=== PATIENT | male | born 1975 | race Caucasian/White ===

== ENCOUNTER 2017-08-13 04:54 | Emergency (ER) | payer SELFPAY ==
[2017-08-13 05:11] VITALS: BP 123/79; PULSE 75; TEMP 98.2; BMI 25.1
--- NOTE | 2017-08-13 05:14 | PDOC ---
History of Present Illness - General Stated Complaint: ear infection Time Seen by Provider: 08/13/17 04:59 History Source: Patient Exam Limitations: No Limitations - History of Present Illness Initial Comments: 08/13/17 05:12 42-year-old male without significant past medical history who presents emergency department tonight bilateral earaches which she describes as a pressure feeling. Patient also reports having sore throat, dry productive cough , and rhinorrhea for 3 days. Patient was seen at an urgent care center and prescribed Naprosyn and azithromycin. Patient has been taking medications for 1 day has not seen an improvement in symptoms. Denies fevers, chills, chest pain, shortness of breath, nausea, vomiting, abdominal pain. Past History - Past Medical History Allergies/Adverse Reactions: Allergies Allergy/AdvReac Type Severity Reaction Status Date / Time No Known Allergies Allergy Verified 08/13/17 05:11 Review of Systems - Review of Systems Able to Perform ROS?: Yes Is the patient limited Surinamese proficient: No Constitutional: No: Symptoms Reported HEENTM: Yes: See HPI Respiratory: Yes: See HPI Cardiac (ROS): No: Symptoms Reported ABD/GI: No: Symptoms Reported : No: Symptoms Reported Musculoskeletal: No: Symptoms Reported Integumentary: No: Symptoms Reported Neurological: No: Symptoms reported Endocrine: No: Symptoms Reported *Physical Exam - Physical Exam General Appearance: Yes: Appropriately Dressed. No: Apparent Distress HEENT: positive: Pharyngeal Erythema, Tonsillar Erythema, Nasal Congestion, Rhinorrhea, Other (bilateral retractions of the TM's). negative: Muffled/ Hoarse voice, Tonsillar Exudate, Sinus Tenderness Neck: positive: Trachea midline, Supple Respiratory/Chest: positive: Lungs Clear, Normal Breath Sounds. negative: Respiratory Distress, Accessory Muscle Use Cardiovascular: positive: Regular Rhythm, Regular Rate. negative: Murmur Gastrointestinal/Abdominal: positive: Normal Bowel Sounds, Soft. negative: Tender Musculoskeletal: positive: Normal Inspection. negative: CVA Tenderness Extremity: positive: Normal Inspection Integumentary: positive: Normal Color, Dry, Warm Neurologic: positive: Alert, Normal Response Medical Decision Making - Medical Decision Making 08/13/17 05:15 A/P: 42-year-old male without medical history with 3 days of upper respiratory symptoms TMs with retractions noted bilaterally Pharyngeal and tonsillar erythema is present. No exudates are present Uvula midline Cobblestoning noted to the posterior oropharynx Lungs clear to auscultation bilaterally Symptoms are consistent with upper respiratory infection. Patient is already being treated with azithromycin and Naprosyn. Patient was instructed to add decongestants to his previously prescribed regimen. We'll discharge the patient home. Patient verbalizes understanding of discharge instructions. *DC/Admit/Observation/Transfer Diagnosis at time of Disposition: Upper respiratory infection Qualifiers: URI type: unspecified URI Qualified Code(s): J06.9 - Acute upper respiratory infection, unspecified - Discharge Dispostion Disposition: HOME Condition at time of disposition: Stable Decision to Admit order: No - Referrals - Patient Instructions Additional Instructions: Rest, drink lots of fluids: Teas, water, soups Saltwater gargles. Consider humidifier in room at night Steamy showers/seem to face break up mucus Avoid contact with allergens, exposure to pollens, close windows on a windy day Lots of handwashing and good hygiene Continue ateg-hha-xvoyraa medications for symptomatic relief- may use allergic eyedrops for itching Continue antihistamines daily until pollen season is over; Zyrtec, Claritin, Siobhan during the daytime and Benadryl at nighttime as will make sleepy Tylenol or naproxen for fever and pain continue taking previously prescribed medications Followup with private physician in one to 2 days as needed Consider following up with an children's counselor/professional nursing assistant for skin testing and possible allergy shots Return to emergency department for worsened symptoms, fevers, dehydration - Post Discharge Activity
== END 2017-08-13 05:12 | disposition home or self-care (01) ==
LOC: JER 04:54
DX: J06.9 Acute upper respiratory infection, unspecified (principal)
CPT/HCPCS: 99281-25

== ENCOUNTER 2019-01-14 18:54 | Emergency (ER) | payer SELFPAY ==
[2019-01-14 19:10] VITALS: BP 136/86; PULSE 68; TEMP 98.3; BMI 27.2
[2019-01-14] MEDS ORDERED: KETOROLAC TROMETHAMINE 60 MG/2 ML VIAL IM ONE (20:20)
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
[2019-01-14] MEDS ORDERED: KETOROLAC TROMETHAMINE 60 MG/2 ML VIAL ONE (20:26)
== END 2019-01-14 20:35 | disposition home or self-care (01) ==
LOC: JERFT 18:54
PROC: 3E0233Z Introduction of Anti-inflammatory into Muscle, Percutaneous Approach (ICD-10-PCS; principal; 2019-01-14)
DX: S39.012A Strain of muscle, fascia and tendon of lower back, initial encounter (principal); S16.1XXA Strain of muscle, fascia and tendon at neck level, initial encounter; V89.2XXA Person injured in unspecified motor-vehicle accident, traffic, initial encounter; Y92.488 Other paved roadways as the place of occurrence of the external cause; Y93.89 Activity, other specified; Y99.8 Other external cause status; E11.9 Type 2 diabetes mellitus without complications; E78.00 Pure hypercholesterolemia, unspecified
CPT/HCPCS: 99282-25

== ENCOUNTER 2020-12-24 21:19 | Emergency (ER) | payer OTHER ==
[2020-12-24 21:58] VITALS: BP 153/80; PULSE 64; TEMP 98; BMI 25.4
[2020-12-24] MEDS ORDERED: MAG HYDROX/AL HYDROX/SIMETH 30 ML UNIT-DOSE CUP PO ONE (22:34)
[2020-12-24] MEDS ORDERED: FAMOTIDINE 20 MG/50 ML IVPB 20 MG/50 ML MG IVPB ONE ×2 (22:34→23:00)
[2020-12-24] MEDS ORDERED: SODIUM CHLORIDE 0.9% 500 ML INFUS.BAG IV ONE (22:37)
[2020-12-24] MEDS ORDERED: LIDOCAINE VISCOUS 2% ORAL/TOP 15 ML UNIT-DOSE CUP MM ONE (22:37)
[2020-12-24] MEDS ORDERED: LIDOCAINE VISCOUS 2% ORAL/TOP 15 ML UNIT-DOSE CUP ONE (23:00)
[2020-12-24 23:04] LABS: BASO % 0.9 % (0-2.0); EOS % 1.5 % (0-4.5); HEMOGLOBIN 13.9 GM/dL (11.7-16.9); LYMPH % 27.8 % (8-40); MCHC 34.9 g/dl (32.0-35.9); MEAN CELL VOLUME 88.8 fl (80-96); MEAN PLT VOLUME 8.2 fl (7.5-11.1); MONO % 6.9 % (3.8-10.2); NEUT % 62.9 % (42.8-82.8); PLATELET COUNT 208 10^3/uL (134-434); RDW 13.1 % (11.9-15.9); WHITE BLOOD COUNT 6.8 K/mm3 (4.0-10.0)
[2020-12-24 23:27] LABS: CALCIUM 8.7 mg/dL (8.5-10.1); CHLORIDE 106 mmol/L (98-107); SODIUM 138 mmol/L (136-145)
[2020-12-24 23:28] LABS: ALBUMIN 3.9 g/dl (3.4-5.0); ANION GAP 5 MMOL/L (8-16); CO2 28 mmol/L (21-32); GLUCOSE,RANDOM 141 mg/dL (74-106)
[2020-12-24 23:31] LABS: CREATININE 0.8 mg/dL (0.55-1.3); SGOT/AST 44 U/L (15-37); SGPT/ALT 54 U/L (13-61)
[2020-12-24 23:33] LABS: BILIRUBIN,TOTAL 0.4 mg/dL (0.2-1); TOT PROT 7.8 g/dl (6.4-8.2)
[2020-12-24 23:34] LABS: ALK PHOS 126 U/L (45-117)
[2020-12-24 23:57] LABS: LIPASE 146 U/L (73-393)
== END 2020-12-25 00:30 | disposition home or self-care (01) ==
LOC: JER 21:19
PROC: 3E033GC Introduction of Other Therapeutic Substance into Peripheral Vein, Percutaneous Approach (ICD-10-PCS; principal; 2020-12-24)
DX: R10.12 Left upper quadrant pain (principal); R10.13 Epigastric pain
CPT/HCPCS: 36415; 71046-TC-FY; 80053; 82550; 82553; 83690; 84484; 85025; 93005; 93010; 99285-25